=== PATIENT | female | born 1975 | race Two or more races ===

== ENCOUNTER 2022-12-25 21:32 | Emergency (ER) | payer SELFPAY ==
[~2022-12-25] VITALS: Ht 149.9 cm; Wt 83.5 kg
--- NOTE | 2022-12-25 21:40 | NUR ---
TO ER BED 3. BIBFAM C/O DIZZINESS X 1 DAY. PT IS ALERT AND ORIENTED. RR EVEN AND NONLABORED. CONNECTED TO MONITOR. VSS
[2022-12-25] MEDS ORDERED: MECLIZINE HCL 25 MG TABLET ONE (23:53)
[2022-12-26] MEDS ORDERED: MECLIZINE HCL 12.5 MG TABLET PO ONE
--- NOTE | 2022-12-26 00:01 | NUR ---
PT RETURNED TO ER BED [address]
[2022-12-26 00:20] LABS: BASOPHILS % (AUTO) 0.4 % (0.0-2.0); HEMATOCRIT 41 % (33-45); HEMOGLOBIN 13.7 g/dL (11.5-14.8); LYMPHOCYTES # (AUTO) 4.2 K/uL (0.8-4.8); LYMPHOCYTES % (AUTO) 41.2 % (20.0-44.0); MEAN CORPUSCULAR HGB CONC 33 g/dl (31.0-36.0); MEAN CORPUSCULAR VOLUME 92 fL (82-100); MONOCYTES # (AUTO) 0.6 K/uL (0.1-1.30); MONOCYTES % (AUTO) 5.4 % (2.0-12.0); NEUTROPHILS # (AUTO) 5.1 K/uL (1.8-8.9); PLATELET COUNT (AUTO) 199 K/uL (150-450); RED BLOOD CELL COUNT(AUTO) 4.47 MIL/uL (4.0-5.2); WHITE BLOOD COUNT (AUTO) 10.2 K/uL (4.3-11.0)
[2022-12-26 00:34] LABS: CALCIUM, SERUM 9.2 mg/dL (8.5-10.1); CREATININE 0.7 mg/dL (0.6-1.3); POTASSIUM 3.6 mmol/L (3.5-5.1)
[2022-12-26] MEDS ORDERED: MECL-159 PO (01:53)
--- NOTE | 2022-12-26 02:08 | NUR ---
Patient discharged to home in stable condition. Written and verbal after care instructions given. Patient verbalizes understanding of instruction.
[2022-12-26 02:10] VITALS: BP 121/74
== END 2022-12-26 02:11 | disposition home or self-care (01) ==
LOC: ER 21:35
DX: R42 Dizziness and giddiness (principal)
CPT/HCPCS: 99285; 70450; 93005; 85025; 80048; 36415; J8597